=== PATIENT | female | born 1975 | race African-American/Black ===

== ENCOUNTER 2023-03-04 01:09 | Emergency (ER) | payer MEDICARE, OTHER ==
[~2023-03-04] VITALS: Ht 175.3 cm; Wt 113.0 kg
[2023-03-04 01:12] VITALS: BP 153/78
[2023-03-04] MEDS ORDERED: ACETAMINOPHEN 325MG TABLET PO ONE (01:45)
[2023-03-04] MEDS ORDERED: ACET-2708 MT (02:30)
== END 2023-03-04 03:09 | disposition home or self-care (01) ==
LOC: ER 01:09
DX: M25.562 Pain in left knee (principal); V49.49XA Driver injured in collision with other motor vehicles in traffic accident, initial encounter; Y93.89 Activity, other specified; Y92.89 Other specified places as the place of occurrence of the external cause; Y99.8 Other external cause status; E11.9 Type 2 diabetes mellitus without complications; Z99.2 Dependence on renal dialysis
CPT/HCPCS: 73562; 73610; 99284